=== PATIENT | female | born 1995 | race Caucasian/White ===

== ENCOUNTER 2020-09-14 02:50 | Emergency (ER) | payer BC, MEDICAID, SELFPAY ==
[2020-09-14 02:54] VITALS: PULSE 94; RESP 18; TEMP 36.4; O2SAT 98; BMI 32.8
--- NOTE | 2020-09-14 02:59 | W.ED.ABDPA2 ---
HPI - Abdominal Pain General: Chief Complaint: Abdominal Pain Stated Complaint: gallbladder issue Time Seen by Provider: 09/14/20 02:55 Source: patient Mode of arrival: ambulatory Limitations: no limitations History of Present Illness: HPI narrative: 25-year-old female states she been having right upper quadrant pain over the last day starting roughly 2 to 3 hours ago. States that sharp pain and rates an 8 out of 10. She states she has had this pain in the past has been told that she needs to have her gallbladder out. She denies any fever. She denies any nausea vomiting. She states she is currently as well. States her last period was July 12. Denies any worsening improving factors. MD elicited complaint: abdominal pain Associated Symptoms: Denies chills, dysuria and fever(s) Review of Systems Const: Denies: fever(s), chills, body aches or change in appetite Eyes: Denies: blurry vision or eye discomfort ENMT: Denies: throat pain or dental pain Card: Denies: chest pain Resp: Denies: dyspnea GI: Reports: abdominal pain : Denies: dysuria Musc: Denies: neck pain or back pain Skin/Breast: Denies: rash Neuro: Denies: headache(s) Psych: Denies: depression [place]/Lymph: Denies: easy bruising All/Imm: Denies: urticaria PFSH ED PFSH: Medical History (Updated 09/14/20 @ 04:22 by Janee Urban MD) No pertinent past medical history Patient denies any past medical history of hypertension, diabetes, heart, lung, liver, kidney, thyroid, bleeding, or clotting problems. PCP: None Surgical History Status post delivery x 2 ---01/25/2014--primary low transverse delivery with double layer closure of uterus with no extension performed at [facility] in [facility]. 11/03/2018--repeat low transverse delivery by Dr. Treadwell at [facility], minimal adhesions of bladder to uterus. Status post tonsillectomy and adenoidectomy At the age of 4 Family History Brother Colon cancer Arnel Jarrell her brother was diagnosed with colon cancer at the age of 21 and at the age of 23. She has never had a colonoscopy herself. 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[place], [place] Physical Exam Const: COMMON NORMALS: no acute distress, patient oriented x3 and healthy appearing HENMT: COMMON NORMALS: normocephalic and atraumatic HEAD & SCALP: normocephalic and atraumatic Eye: COMMON NORMALS: Equal, round and reactive pupils present and EOMs intact bilaterally PUPIL: Yes Equal, round and reactive pupils present Neck/C-Spine: COMMON NORMALS: full ROM and supple Chest: COMMONS NORMALS: normal inspection of the chest and normal palpation of entire chest wall Resp: COMMON NORMALS: normal respiratory effort, No retractions, No use of accessory muscles and clear to auscultation bilaterally AUSCULTATION: clear to auscultation bilaterally Cardio: COMMON NORMALS: regular rate, regular rhythm and No murmurs present (Cardio) RATE: regular rate RHYTHM: regular rhythm GI: COMMON NORMALS: Normal to inspection, nondistended, normoactive bowel sounds present, Soft to palpation and no masses PALPATION: Yes Soft to palpation and Yes Tenderness to palpation present (GI) Details: RUQ Extremity: COMMON NORMALS: normal to inspection and full ROM Neuro: COMMON NORMALS: patient oriented x3, moves all extremities and no focal motor deficits Psych: COMMON NORMALS: mental status grossly normal, Normal thought process present and cooperative THOUGHT PROCESS: Normal thought process present Skin: COMMON NORMALS: no rashes or lesions noted and no wounds GENERAL SKIN EXAM: no rashes or lesions noted Course Vital Signs: Vital signs: Vital Signs Temperature 97.5 F L 09/14/20 02:54 Pulse Rate 68 09/14/20 04:15 Respiratory Rate 16 09/14/20 04:15 Pulse Oximetry 98 09/14/20 04:15 MDM - Abdominal Pain MDM Narrative: Medical decision making narrative: Patient presents here with abdominal pain does have gallstones. No signs of cholecystitis. Patient is I did a bedside ultrasound showed a roughly 8 to 9 weeks with heart rate of 152. She is to follow-up with surgery and return if worsening. She understands agrees to plan. Lab Data: Labs: Lab Results 09/14/20 09/14/20 09/14/20 Range/Units 03:10 03:20 03:25 WBC 9.4 (4.0-10.0) 10^3/ uL RBC 4.28 (4.1-5.3) 10^6/u L Hgb 12.2 (11.5-15.3) g/dL Hct 37.7 (37.0-47.0) % MCV 88.1 (81-99) fL MCH 28.5 (28.0-34.0) pg MCHC 32.4 (30.0-36.0) g/dL RDW 12.5 (12.1-15.1) % Plt Count 360 (130-400) 10^3/c mm MPV 9.3 (7.4-10.4) fL Neut % (Auto) 60.4 % Lymph % (Auto) 28.8 % [place] % (Auto) 8.3 % Eos % (Auto) 1.8 % Baso % (Auto) 0.2 % Neut # (Auto) 5.65 (1.8-7.7) 10^3/u L Lymph # (Auto) 2.7 (0.8-4.8) 10^3/u L [place] # (Auto) 0.8 (0.2-0.9) 10^3/u L Eos # (Auto) 0.2 (0.0-0.8) 10^3/u L Baso # (Auto) 0.0 (0.0-0.1) 10^3/u L Nucleated RBC % (a uto) 0 % Nucleated RBCs # 0.0 /100WBC Sodium 135 L (136-145) mmol/L Potassium 3.6 (3.5-5.1) mmol/L Chloride 103 (98-107) mmol/L Carbon Dioxide 22 (22-29) mmol/L Anion Gap 13.6 (5-19) BUN 10 (6-20) mg/dL Creatinine 0.4 L (0.5-0.9) mg/dL GFR Calculation 191.5 H (90-130) mL/min Glucose 83 (65-115) mg/dL Calculated Osmolal ity 278 L (285-295) mOsm/k g Calcium 8.8 (8.5-10.5) mg/dL Total Bilirubin 0.2 (0.15-1.2) mg/dL AST 25 (0-32) U/L ALT 35 H (0-33) U/L Alkaline Phosphata se 104 (35-105) IU/L Total Protein 7.6 (6.6-8.7) g/dL Albumin 4.0 (3.5-5.2) g/dL Globulin 3.6 (1.3-4.6) g/dL Lipase 43 (13-60) U/L Urine Color Yellow (Yellow) Urine Appearance Clear (CLEAR) Urine pH 6 (5-7) Ur Specific Gravit y 1.025 (1.005-1.030) Urine Protein Neg (Negative) Urine Glucose (UA) Norm (Normal) Urine Ketones Negative (Negative) Urine Blood Neg (Negative) Urine Nitrate Negative (Negative) Urine Bilirubin Neg (Negative) Urine Urobilinogen Norm (Negative) mg/dL Ur Leukocyte Stella ase Negative (Negative) Imaging Data ^: US: Attestation: I personally reviewed and interpreted this imaging study as follows: My impression: gallstones with no cholecystitis Discharge Plan Discharge Patient Disposition: Home Clinical Impression: Abdominal pain Qualifiers: Abdominal location: right upper quadrant Qualified Code(s): R10.11 - Right upper quadrant pain Gallstone Qualifiers: Cholecystitis presence: without cholecystitis Biliary obstruction: without biliary obstruction Qualified Code(s): K80.20 - Calculus of gallbladder without cholecystitis without obstruction Qualifiers: Weeks of gestation: unspecified Qualified Code(s): Z34.90 - Encounter for supervision of normal , unspecified, unspecified trimester Condition: Stable Prescriptions: [place] 5-325 mg tablet 1 tab PO Q6H PRN (Reason: pain) Qty: 14 RF: 0 ondansetron 4 mg tablet,disintegrating 4 mg PO Q6H PRN (Reason: nausea and vomiting) Qty: 14 RF: 0 Discharge Orders: Discharge ED (Routine); Ordered 09/14/20 Ordered By: Janee Urban Referrals: Aaron Smith MD [Physician] - 1-3 days Orion Epps MD [Primary Care Provider] - Discharge Diet: Advance as tolerated Discharge Activity: Resume usual activity Patient Instructions: Biliary Colic (ED), Abdominal Pain (ED), Opioid Safety Coding Level of Care Code ED Airdrop Systems Technician for Chg Fwd Exam Comprehensive
[2020-09-14] MEDS: ondansetron 2 mg/ML SDV 2 mL 4 MG IVP (03:20)
[2020-09-14 03:21] VITALS: RESP 16; O2SAT 100
[2020-09-14] MEDS: morphine 4 mg/mL SDV 1 mL IVP (03:21)
[2020-09-14 03:27] LABS: Add Urine Microscopic? NO
--- NOTE | 2020-09-14 03:30 | USR_ITS ---
PROCEDURE INFORMATION: Exam: US Abdomen, Limited; Right Upper Quadrant Exam date and time: 09/14/2020 3:30 AM Age: 25 years old Clinical indication: Abdominal pain; Acute; Additional info: Abd pain TECHNIQUE: Imaging protocol: US abdomen. Real time ultrasound with image documentation. Limited exam focused on the right upper quadrant. COMPARISON: US gall bladder [id number] 04/05/2019 7:19 PM FINDINGS: Liver: Unremarkable liver, no focal abnormality. Gallbladder: Moderate amount of echogenic material within the gallbladder. There appears to be some acoustic shadowing, so some of this represents gallstones. I suspect some of the findings represent biliary sludge. No definite/significant gallbladder wall thickening. No definite pericholecystic fluid. The gallbladder is upper range of normal in size, transverse diameter up to 3.8 cm. Technologist states patient was tender over the gallbladder region during scanning. Common bile duct: No biliary dilation, common duct measures 2.6 mm. Pancreas: Visible pancreas unremarkable. Right kidney: Images of the right kidney show no hydronephrosis. US/US gall bladder [id number] IMPRESSION: 1. Cholelithiasis, see additional details above. 2. No biliary tree dilation. 3. Other findings discussed above.
[2020-09-14 03:38] LABS: Basophils % 0.2 %; Eosinophils # 0.2 10^3/uL (0.0-0.8); Eosinophils % 1.8 %; Hematocrit 37.7 % (37.0-47.0); Hemoglobin 12.2 g/dL (11.5-15.3); Lymphocytes # 2.7 10^3/uL (0.8-4.8); Lymphocytes % 28.8 %; Mean Corpuscular HGB Conc 32.4 g/dL (30.0-36.0); Mean Corpuscular Hemoglobin 28.5 pg (28.0-34.0); Mean Corpuscular Volume 88.1 fL (81-99); Mean Platelet Volume 9.3 fL (7.4-10.4); Monocytes # 0.8 10^3/uL (0.2-0.9); Monocytes % 8.3 %; Neutrophils # 5.65 10^3/uL (1.8-7.7); Neutrophils % 60.4 %; Nucleated Red Blood Cells % 0 %; Platelet Count 360 10^3/cmm (130-400); Red Blood Count 4.28 10^6/uL (4.1-5.3); Red Cell Distribution Width 12.5 % (12.1-15.1); White Blood Count 9.4 10^3/uL (4.0-10.0)
[2020-09-14 03:40] LABS: Alanine Aminotransferase 35 U/L (0-33); Alkaline Phosphatase 104 IU/L (35-105); Aspartate Amino Transferase 25 U/L (0-32); Blood Urea Nitrogen 10 mg/dL (6-20); Calcium 8.8 mg/dL (8.5-10.5); Carbon Dioxide 22 mmol/L (22-29); Chloride 103 mmol/L (98-107); Globulin 3.6 g/dL (1.3-4.6); Glomerular Filtration Rate 191.5 mL/min (90-130); Glucose 83 mg/dL (65-115); Lipase 43 U/L (13-60); Osmolality Calculated 278 mOsm/kg (285-295); Sodium 135 mmol/L (136-145); Total Bilirubin 0.2 mg/dL (0.15-1.2); Total Protein 7.6 g/dL (6.6-8.7)
[2020-09-14 03:42] LABS: Anion Gap 13.6 (5-19); Potassium 3.6 mmol/L (3.5-5.1)
[2020-09-14 03:47] LABS: Bilirubin Urine Neg (Negative); Blood Urine Neg (Negative); Glucose Urine UA Norm (Normal); Ketones Urine Negative (Negative); Leukocyte Esterase Urine Negative (Negative); Nitrate Urine Negative (Negative); Protein Urine Neg (Negative); Specific Gravity, Urine 1.025 (1.005-1.030); Urine Appearance Clear (CLEAR); Urine Color Yellow (Yellow); Urobilinogen Urine Norm (Negative); pH Urine 6 (5-7)
[2020-09-14 04:15] VITALS: PULSE 68; RESP 16; O2SAT 98
[2020-09-14] MEDS: HYDROcodone-acetaminophen 7.5-325 mg Tablet 1 TAB PO (04:28)
[2020-09-14 04:31] VITALS: BP 106/90; PULSE 98; RESP 18; O2SAT 97
--- NOTE | 2020-09-16 14:14 | DCPLANNER ---
store sales manager had message to schedule a follow up appointment for patient with Dr. Smith. store sales manager faxed patients information to the office of Dr. Smith, will call for appointment information.
--- NOTE | 2020-10-22 14:06 | DCPLANNER ---
embedded case manager called the office of Dr. Smith, spoke with Mackenzie, to confirm if a follow up appointment had been scheduled for patient. embedded case manager was told that when clinic called and spoke with patient, that patient stated that when she wanted an appointment that she would call the clinic to schedule a follow up.
== END 2020-09-14 04:33 | disposition home or self-care (01) ==
PROVIDERS: Emergency Provider Emergency Medicine; PCP Family Medicine
DX: O99.611 Diseases of the digestive system complicating pregnancy, first trimester (principal); Z3A.08 8 weeks gestation of pregnancy
CPT/HCPCS: 76705; 80053; 81003; 83690; 85025; 96374; 96375; 99283; J2270; J2405

== ENCOUNTER 2020-09-25 15:11 | Outpatient (CLI) | payer MEDICAID, SELFPAY ==
[2020-09-25 16:08] LABS: Amphetamines Screen Urine Negative (Negative); Barbiturates Screen Urine Negative (Negative); Benzodiazepines Screen Urine Negative (Negative); Cocaine Screen Urine Negative (Negative); Opiate Screen Urine Negative (Negative); PCP Screen Urine Negative (Negative); THC Screen Urine Negative (Negative)
[2020-09-25 21:40] LABS: Rapid Plasma Reagin Syphilis Nonreactive (Nonreactive)
[2020-09-25 22:00] LABS: Hepatitis B Surface Antigen Non-Reactive (Nonreactive); Hepatitis C Virus Antibody Non-Reactive (Nonreactive)
== END 2020-09-25 15:12 | disposition home or self-care (01) ==
LOC: LAB 15:28
PROVIDERS: PCP Family Medicine; Visit Provider Obstetrics & Gynecology
DX: Z34.90 Encounter for supervision of normal pregnancy, unspecified, unspecified trimester (principal)
CPT/HCPCS: 36415; 80306; 80307; 84315; 86592; 86762; 86803; 86850; 86900; 87340; 87491; 87591

== ENCOUNTER → 2020-10-03 11:00 | Outpatient (BNVA) | payer MEDICAID, SELFPAY | PROVIDERS: PCP Family Medicine; Visit Provider Surgery | DX: K80.20 Calculus of gallbladder without cholecystitis without obstruction (principal) | CPT/HCPCS: 87635 ==

== ENCOUNTER → 2020-10-07 08:29 | Outpatient (BNVA) | payer MEDICAID, SELFPAY | PROVIDERS: PCP Family Medicine; Visit Provider Obstetrics & Gynecology | DX: Z34.90 Encounter for supervision of normal pregnancy, unspecified, unspecified trimester (principal); Z3A.00 Weeks of gestation of pregnancy not specified | CPT/HCPCS: 87086 ==

== ENCOUNTER 2020-10-08 09:36 | Day surgery (SDC) | payer MEDICAID, SELFPAY ==
[2020-10-07 08:53] VITALS: BMI 37.9
[2020-10-07] MEDS: ondansetron 2 mg/ML SDV 2 mL 4 MG IVP (12:30)
[2020-10-08] VITALS (11 sets, daily range): BP systolic 82–111; BP diastolic 49–77; PULSE 54–83; RESP 12–20; TEMP 36.3–36.6; O2SAT 95–100
--- NOTE | 2020-10-08 10:24 | PC.NURSE ---
OB NURSE, SHERRI PAYTON RN HERE AND CHECKING HEART TONES.
--- NOTE | 2020-10-08 10:28 | W.PM.OPSUD ---
Surgery/Procedure H&P Update DATE OF PROCEDURE: October 08, 2020 DATE H&P PERFORMED: 10/03/20 H&P UPDATE INFORMATION: I have reviewed H&P completed within last 30 days, I have examined patient prior to procedure and No changes to prior documentation PREOP DIAGNOSIS: Symptomatic cholelithiasis PRIMARY INDICATION FOR PROCEDURE: The same PLANNED PROCEDURE: Operation Date: 10/08/20 11:10 Proposed Procedures p Laparoscopic Cholecystectomy 85225 K80.20(Not Applicable) - Genaro Ford MD
[2020-10-08] MEDS: sodium chloride 0.9% 1,000 ML 30 ML IV (10:32)
--- NOTE | 2020-10-08 10:32 | PC.NURSE ---
1025 HEART TONES DOPPLERED AT 150'S
--- NOTE | 2020-10-08 10:41 | P.ANESASSM_ITS ---
Pre-Anesthetic Assessment Pre-Anesthetic Assessment: Height/Weight: Height 1.6 m Weight 97.069 kg Temp Pulse Resp BP Pulse Ox 97.3 F L 83 18 111/77 100 10/08/20 10:19 10/08/20 10:19 10/08/20 10:19 10/08/20 10:19 10/08/20 10:19 Preop Diagnosis: Symptomatic cholelithiasis Proposed Procedure: Operation Date: 10/08/20 11:10 Proposed Procedures p Laparoscopic Cholecystectomy 24950 K80.20(Not Applicable) - Genaro Ford MD Was Beta Joe taken within 24 hours: N/A Was Clonidine taken within 24 hours: N/A Last intake: Intake Last Liquid Date 10/07/20 Last Liquid Time 20:00 Last Solid Date 10/07/20 Last Solid Time 20:00 Social: Social History: No alcohol and No tobacco Exam: Pre-Anes Outpt Exam: alert, oriented x 3, clear to auscultation bilaterally and regular rate & rhythm Airway: Submandibular: WNL Cervical ROM: WNL MP: 2 History/ROS: No significant history except as noted Pulmonary: Pulmonary: None reported CV/HEM: CV/HEM: None reported : : None reported Hepatic: Hepatic: None reported GI: Comments: Symptomatic cholelithiasis Metabolic: Metabolic: None reported Musc/skel: Musc/skel: None reported Neuropsych: Neuropsych: None reported Anesthetic Plan: ASA status: 2 Anesthesia: General Meds/Allergies Current Medications: Current Medications Generic Name Dose Route Start Last Admin Trade Name Freq PRN Reason Stop Dose Admin Sodium Chloride 1,000 mls @ 30 ml s/hr 10/08/20 10:30 10/08/20 10:32 Sodium Chloride 0.9% IV 10/09/20 10:29 30 mls/hr .Q24H TYRESE Administration PFSH Anesthesia PFSH: Medical History No pertinent past medical history Patient denies any past medical history of hypertension, diabetes, heart, lung, liver, kidney, thyroid, bleeding, or clotting problems. PCP: None Surgical History Status post delivery x 2 ---01/25/2014--primary low transverse delivery with double layer closure of uterus with no extension performed at [facility] in [facility]. 11/03/2018--repeat low transverse delivery by Dr. Treadwell at [facility], minimal adhesions of bladder to uterus. Status post tonsillectomy and adenoidectomy At the age of 4 Family History Brother Colon cancer Arnel Jarrell her brother was diagnosed with colon cancer at the age of 21 and at the age of 23. She has never had a colonoscopy herself. Family/Other Breast cancer maternal aunt, diagnosed in er 50s Denies family history of Ovarian cancer Diabetes Heart disease Hyperlipidemia Hypertension Uterine cancer Thyroid condition Stroke Social History Smoking and tobacco status: never smoked Alcohol intake: unknown Data Anesthesia Cardiac Studies: No Data to Display
[2020-10-08] MEDS: ampicillin-sulbactam 3 GM in sodium chloride 0.9% (plus) 50 ML IV (10:45)
[2020-10-08] MEDS: lidocaine 2% INJ 20 mL INJECTION (11:11)
--- NOTE | 2020-10-08 11:42 | P.OP_ITS ---
Operative Report Date of procedure: October 08, 2020 Pre-op Diagnosis: Symptomatic cholelithiasis Post-op diagnosis: other (Chronic calculus cholecystitis) Post-op Findings: Mild hepatomegaly due to fatty liver Procedure Done: Laparoscopic cholecystectomy Specimens removed/disposition: Gallbladder and contents Surgeon: Genaro Ford Executive Director Contract Shop: Surgical adeel Romero Circulating nurse Milly Ochoa Anesthesia: General (GET[employer] claims adjuster Gage) Estimated blood loss (mL): 5 IV fluids (mL): 500 Complications: No immediate complications Condition: stable Disposition: same day Brief History: This is a pleasant 25 years old female patient second trimester of gestation, presented to my practice with symptomatic cholelithiasis. Full H&P and informed consent per chart. Note viable heart sounds in the holding area preoperatively and postoperatively examined by obstetric nurse. Procedure: Patient was identified in the holding area and taken back to the operative suite, placed in supine position intubated by anesthesia . Time-out was done verifying the patient's name/date of /planned procedure and destination after the procedure, all were in agreement. SCDs confirmed to be functioning, preoperative antibiotics administered per protocol, and beta pati protocol was confirmed. Patient was appropriately secured to the table, footboard was applied to the OR table, before prep and drape anesthesia was asked to tilt the table back and forth to make sure that the patient is appropriately secured and she was. Prep and drape of the abdomen was done under the usual sterile technique, follow ed by that supraumbilical skin incision,skin incision was done by a 15 blade knife, and stay sutures were applied to the fascia and Sloan trocar technique was used to enter the abdominal without injuring any abdominal viscera, started by low flow gas insufflation followed by a high flow pressure maintained to be at 12 mmHg, started with a 10 mm laparoscope and under direct vision there was no evidence of any injuries, the scope then switched to a 30? ,10 millimeter scope and under direct visualization 5 millimeter trocar was inserted in the epigastric region followed by two 5 mm trocars were inserted in the right upper quadrant that was done after injection of local lidocaine 2% at all incision sites. Gallbladder showed chronic calculus cholecystitis with mild hepatomegaly Patient was then positioned in the head up and tilted to the left Ratcheted forceps were introduced into the lateral most 5mm port and was applied unto the fundus of the gallbladder cephalad and using Bullet forceps the infundibulum of the gallbladder was retracted laterally. Using [place] forceps then L-hook cautery to dissect the peritoneum overlying the Calot's triangle whihc was then opened medially and laterally until the cystic duct and the cystic artery were skeletonized. Dissection was carried along the body of the gallbladder and after ensuring critical view of safety was identfied. Cystic duct and cystic artery where seen connected to the gallbladder. Clips were applied on the cystic duct towards the common bile duct 1 towards the gallbladder then divided is in sharp scissors, 2 clips were then applied onto the cystic artery and 1 towards the gallbladder and divided by sharp scissors. Dissection was then carried along of the gallbladder from the gallbladder fossa using cautery as well as sharp dissection with heat energy. The gallbladder then was dissected out from the gallbladder fossa totally , cholecystectomy was then achieved and was placed in an Endo Catch bag and then retrieved from the Sloan trocar site under direct visualization using a 5 mm 30? scope through the epigastric trocar, specimen was then passed to the circulating nurse to go for permanent pathology and hemostasis was done to the gallbladder fossa after hemostasis was secured, final survey laparoscopy was done that showed no injuries. Noticed to have gravid uterus with visible pulsation.Per in utero fetus. The supraumbilical fascial defect was then closed using [id number] #1 PDS sutures using a fascial closure device ;Shoaib Phan under direct visualization Gas was allowed to deflate,Trocars were then taken out under direct vision there was no evidence of bleeding Specimen was passed to the circulating nurse for permanent pathology. No drains were placed and the supraumbilical incision as well as all trocar sites were closed by 3-0 Vicryl followed by 4-0 Monocryl to approximate the skin edges of the supraumbilical incision, dressing was applied in the form of Dermabond and the patient patient got extubated and was taken to recovery area in a stable condition. Count of sponges,needles and instruments were completed at the end of the procedure I was present for the whole entire procedure.
--- NOTE | 2020-10-08 11:55 | PC.NURSE ---
priti olsen from OB came to OR 4 after case was completed. She used the ultrasound to view fetus after unable to hear heart tones with doppler. Dr Ford was present as well and witnessed visual of heart beating.
[2020-10-08] MEDS: ondansetron 2 mg/ML SDV 2 mL 4 MG IVP (12:03)
--- NOTE | 2020-10-08 12:52 | PC.NURSE ---
THIS RADIOLOGICAL METALLURGIST WENT TO OR TO OBTAIN FHTS, UNABLE TO GET THEM WITH DOPPLER SO PORTABLE ULTRASOUND USED TO VISUALIZE HEART BEATING, WITNESSED BY DR. Merritt AND SEVERAL NURSES IN OR.
--- NOTE | 2020-10-08 12:58 | PC.NURSE ---
1252-ephedrine given IVP by FINANCIAL INSTITUTION BRANCH MANAGER for BP.
--- NOTE | 2020-10-08 13:50 | PC.NURSE ---
IV BOLUS OF NS 500ML INFUSED. PT SMILING, TALKING, AND VS BACK TO BASELINE. PT TAKING FLUIDS AND EATING CRACKERS WITHOUT NAUSEA. SKIN COLOR PINK.
--- NOTE | 2020-10-08 13:53 | ANE.PACU2 ---
Inpatient post-anesthesia follow up: Airway intact: Yes Vital signs: Temperature 97.8 F Pulse Rate 82 Respiratory Rate 18 Blood Pressure 104/55 Pulse Oximetry 100 Oxygen Delivery Me thod Room Air Oxygen Flow Rate 10 Fraction of Inspir ed Oxygen Hydration adequate: Yes Nausea and vomiting: No Pain level: 3 Mental status: Baseline
== END 2020-10-08 14:19 | disposition home or self-care (01) ==
PROVIDERS: Visit Provider Surgery
PROC: 0FT44ZZ Resection of Gallbladder, Percutaneous Endoscopic Approach (ICD-10-PCS; CPT 47562; principal; 2020-10-08 11:00)
DX: K80.10 Calculus of gallbladder with chronic cholecystitis without obstruction (principal); Z80.0 Family history of malignant neoplasm of digestive organs; Z80.3 Family history of malignant neoplasm of breast
CPT/HCPCS: 47562; 88304; 96365; 96374; J0295; J1100; J2405; J2704; J3010; J3490; J7030

== ENCOUNTER → 2020-10-24 13:03 | Outpatient (BNVA) | payer MEDICAID, SELFPAY | PROVIDERS: Visit Provider Nurse Practitioner Women's Health | DX: Z34.90 Encounter for supervision of normal pregnancy, unspecified, unspecified trimester (principal) | CPT/HCPCS: 82950; 84315 ==

== ENCOUNTER 2021-01-19 18:10 | Outpatient (CLI) | payer MEDICAID, SELFPAY ==
[2021-01-19] VITALS (14 sets, daily range): BP systolic 78–107; BP diastolic 51–70; PULSE 91–109; RESP 16–20; TEMP 37.1–37.2; O2SAT 99; BMI 36.8
[2021-01-19 19:20] LABS: Bilirubin Urine 1+ (Negative); Blood Urine Neg (Negative); Glucose Urine UA Norm (Normal); Ketones Urine 3+ (Negative); Leukocyte Esterase Urine Trace (Negative); Nitrate Urine Negative (Negative); Protein Urine Neg (Negative); Specific Gravity, Urine 1.015 (1.005-1.030); Urine Appearance SL Hazy (CLEAR); Urine Color Yellow (Yellow); Urobilinogen Urine 4 mg/dL (Negative); pH Urine 5 (5-7)
[2021-01-19 19:24] LABS: Mucus Urine 1+ /hpf
[2021-01-19 19:25] LABS: Add Urine Culture? No; Bacteria Urine 1+ /hpf
[2021-01-19 19:35] LABS: SARS Covid-2 Antigen Positive (Negative)
[2021-01-19] MEDS: guaiFENesin-codeine UDC 10 mL PO (19:56)
[2021-01-19] MEDS: ondansetron 2 mg/ML SDV 2 mL 4 MG IVP (19:56)
== END 2021-01-19 21:09 | disposition home or self-care (01) ==
LOC: OPOB 18:14 → OBGYN 18:15
PROVIDERS: Visit Provider Obstetrics & Gynecology
DX: O26.899 Other specified pregnancy related conditions, unspecified trimester (principal); Z3A.00 Weeks of gestation of pregnancy not specified; R10.9 Unspecified abdominal pain; R05 Cough
CPT/HCPCS: 59025; 81001; 87426; 96374; 99211; J2405

== ENCOUNTER 2021-01-21 16:35 | Emergency (ER) | payer MEDICAID, SELFPAY ==
[2021-01-21 17:19] VITALS: BP 88/63; PULSE 116; RESP 26; TEMP 37.5; O2SAT 97; BMI 36.8
--- NOTE | 2021-01-21 18:16 | XRR_ITS ---
PROCEDURE INFORMATION: Exam: XR Chest Exam date and time: 01/21/2021 6:16 PM Age: 25 years old Clinical indication: Shortness of breath; Additional info: Cough, SOB, covid +, lower abd pain/discomfort, weakness. 29 weeks TECHNIQUE: Imaging protocol: XR of the chest. Views: 1 view. COMPARISON: ES surgery / GI images 10/08/2020 8:30 AM FINDINGS: Lungs: Patchy symmetric right lower lung infrahilar airspace opacity in the lower lobes. Mild decreased lung volumes. Interstitium is unremarkable. No vascular dilation. Pleural spaces: Unremarkable. No pleural effusion. No pneumothorax. Heart/Mediastinum: Normal cardiac silhouette. Bones/joints: Unremarkable. XR/XR chest 1V portable [id number] IMPRESSION: Patchy right lower lobe pneumonia suspected.
[2021-01-21 20:41] VITALS: BP 110/78; PULSE 107; RESP 22; O2SAT 100
[2021-01-21] MEDS: acetaminophen 325 mg Tablet 650 MG PO (21:11)
[2021-01-21] MEDS: sodium chloride 0.9% 1,000 ML 999 ML IV ×2 (21:36→23:41)
[2021-01-21] MEDS: ondansetron 2 mg/ML SDV 2 mL 4 MG IVP (21:36)
[2021-01-21 21:46] VITALS: BP 112/80; PULSE 102; RESP 22; O2SAT 100
[2021-01-21 21:49] LABS: Basophils % 0.5 %; Hematocrit 38.4 % (37.0-47.0); Hemoglobin 12.4 g/dL (11.5-15.3); Lymphocytes # 1.2 10^3/uL (0.8-4.8); Lymphocytes % 18.7 %; Mean Corpuscular HGB Conc 32.3 g/dL (30.0-36.0); Mean Corpuscular Hemoglobin 28.4 pg (28.0-34.0); Mean Corpuscular Volume 88.1 fL (81-99); Monocytes # 0.4 10^3/uL (0.2-0.9); Monocytes % 5.8 %; Neutrophils # 4.73 10^3/uL (1.8-7.7); Neutrophils % 71.7 %; Nucleated Red Blood Cells % 0 %; Platelet Count 231 10^3/cmm (130-400); Red Blood Count 4.36 10^6/uL (4.1-5.3); Red Cell Distribution Width 14.1 % (12.1-15.1); White Blood Count 6.6 10^3/uL (4.0-10.0)
[2021-01-21 22:05] LABS: Alanine Aminotransferase 37 U/L (0-33); Albumin Level 3.7 g/dL (3.5-5.2); Alkaline Phosphatase 204 IU/L (35-105); Anion Gap 24.6 (5-19); Aspartate Amino Transferase 36 U/L (0-32); Blood Urea Nitrogen 3 mg/dL (6-20); Calcium 7.9 mg/dL (8.5-10.5); Carbon Dioxide 12 mmol/L (22-29); Chloride 100 mmol/L (98-107); Creatine Phosphokinase 38 U/L (26-192); Glucose 73 mg/dL (65-115); Osmolality Calculated 271 mOsm/kg (285-295); Potassium 3.6 mmol/L (3.5-5.1); Sodium 133 mmol/L (136-145); Total Bilirubin 0.9 mg/dL (0.15-1.2); Total Protein 6.7 g/dL (6.6-8.7)
[2021-01-21 22:19] LABS: Add Urine Culture? No; Add Urine Microscopic? YES; Amorphous Sediment Urine 1+ /hpf; Bacteria Urine 1+ /hpf; Bilirubin Urine 1+ (Negative); Blood Urine Neg (Negative); Glucose Urine UA Norm (Normal); Hyaline Casts Urine 0-4 /lpf; Ketones Urine 3+ (Negative); Leukocyte Esterase Urine 2+ (Negative); Mucus Urine 1+ /hpf; Nitrate Urine Negative (Negative); Protein Urine Neg (Negative); RBC Urine 0-4 /hpf (0-2); Specific Gravity, Urine 1.025 (1.005-1.030); Urine Appearance SL Hazy (CLEAR); Urine Color Yellow (Yellow); Urobilinogen Urine 4+ mg/dL (Negative); pH Urine 5 (5-7)
[2021-01-21 22:25] LABS: Lactate (Lactic Acid level) 0.6 mmol/L (0.5-2.2)
--- NOTE | 2021-01-21 22:33 | ED_ITS ---
HPI - COVID General: Chief Complaint: COVID symptoms Stated Complaint: covid +, sob, weak, Time Seen by Provider: 01/21/21 20:27 Triage information: Has fever, cough or shortness of breath . No known COVID + exposure last 14 days History of Present Illness: HPI Narrative: The patient is a 25-year-old female at 29 weeks gestational age who comes to the ER known Covid positive complaining of body aches and decreased appetite. She says she was diagnosed a couple days ago at the OBs office and has had symptoms for approximately 5 days. She says she is fatigued and weak and has lower back pain that aches her. She has not been eating and drinking well the past couple days. She denies contractions and does appreciate movement. Also denies vaginal discharge or blood. MD complaint: known COVID positive and has COVID symptoms Prior covid testing: yes, results known COVID 19 common symptoms: positive chills, non-productive cough, dyspnea, fatigue, body aches, headache(s), loss of sense of smell and/or taste, nausea and vomiting; negative throat pain or nasal congestion COVID 19 other sytmptoms: negative chest pain, requiring oxygen, respiratory distress or cyanosis Onset (ago): day(s) (5) Severity: mild Treatment prior to arrival: cold medicine COVID Results: SARS-CoV-2 Antigen (Rapid) Positive (Negative) H 01/19/21 18:35 01/19/21 Nasal/Oral Coronavirus 2019 PCR Not detected 10/03/20 11:00 10/03/20 Review of Systems General: Reports: 10 or more systems reviewed and unremarkable except in HPI and below Const: Reports: chills, body aches and fatigue Eyes: Denies: change in vision, blurry vision or eye redness ENMT: Denies: throat pain, swelling of lips/tongue, ear or mastoid pain or nasal congestion Card: Denies: chest pain, palpitations, irregular heart rhythm, edema, dyspnea on exertion or orthopnea Resp: Reports: dyspnea and non-productive cough GI: Reports: nausea and vomiting : Denies: flank pain, difficulty voiding, urinary frequency or urinary urgency Musc: Denies: neck pain, back pain, extremity pain, joint pain, joint redness, limited range of motion or muscle weakness Skin/Breast: Denies: rash, pruritus, erythema, skin pain or skin tenderness Neuro: Reports: headache(s) Psych: Denies: anxiety or depression Endo: Denies: polyuria All/Imm: Denies: urticaria, throat swelling or tongue swelling PFSH ED PFSH: Medical History Family history of colon cancer No pertinent past medical history Patient denies any past medical history of hypertension, diabetes, heart, l michael, liver, kidney, thyroid, bleeding, or clotting problems. PCP: None Surgical History History of cholecystectomy 10/08/2020--laparoscopic procedure at [address] Gonzalez at [facility] for gallstones Status post delivery x 2 ---01/25/2014--primary low transverse delivery with double layer closure of uterus with no extension performed at [facility] in [facility]. 11/03/2018--repeat low transverse delivery by Dr. Treadwell at [facility], minimal adhesions of bladder to uterus. Status post tonsillectomy and adenoidectomy At the age of 4 Family History Brother Colon cancer Arnel Jarrell her brother was diagnosed with colon cancer at the age of 21 and at the age of 23. She has never had a colonoscopy herself. Family/Other Breast cancer maternal aunt, diagnosed in er 50s Denies family history of Ovarian cancer Diabetes Heart disease Hyperlipidemia Hypertension Uterine cancer Thyroid condition Stroke Social History Smoking and tobacco status: never smoked Alcohol intake: unknown Female Reproductive History: Date of last menstrual period: 07/01/20 Physical Exam Const: COMMON NORMALS: no acute distress, average body habitus, patient orie nted x3, no limitations, healthy appearing, alert and well nourished GENERAL APPEARANCE: cooperative, comfortable, well kempt and well developed ORIENTATION/CONSCIOUSNESS: Yes awake, Yes oriented to person, Yes oriented to place and Yes oriented to time HENMT: COMMON NORMALS: normocephalic, external ears normal and Normal external nose present HEAD & SCALP: normal to inspection and normocephalic NOSE: Normal external nose present EXTERNAL EAR: Yes external ears normal MOUTH: Normal oral and palatal mucosa present THROAT: posterior oropharynx normal Eye: COMMON NORMALS: Equal, round and reactive pupils present and EOMs intact bilaterally GENERAL EYE: appearance normal, both eyes and all related structures PUPIL: Yes Equal, round and reactive pupils present Neck/C-Spine: COMMON NORMALS: full ROM, no lymphadenopathy, no meningeal signs and no JVD GENERAL: Yes normal visual inspection Lymph: LYMPHATIC: no lymphadenopathy noted Chest: COMMONS NORMALS: normal inspection of the chest and normal palpation of entire chest wall Resp: COMMON NORMALS: normal respiratory effort, No retractions, No use of accessory muscles, clear to auscultation bilaterally and percussion normal EFFORT & INSPECTION: Yes able to speak in complete sentences AUSCULTATION: clear to auscultation bilaterally PERCUSSION: percussion normal Cardio: COMMON NORMALS: no JVD, regular rate, regular rhythm, S1 normal heart sound present, S2 normal heart sound present and Peripheral pulses 2+ throughout RATE: regular rate RHYTHM: regular rhythm HEART SOUNDS: S1 normal heart sound present and S2 normal heart sound present PERIPHERAL PULSES: Peripheral pulses 2+ throughout GI: COMMON NORMALS: Soft to palpation, non-tender and no masses INSPECTION: Yes normal to inspection PALPATION: Yes Soft to palpation OTHER: Appropriate for gestational age uterus above umbilicus. : COMMON NORMALS: Yes no CVA tenderness BLADDER/KIDNEY EXAM: Yes no CVA tenderness Back/Pelvis: COMMON NORMALS: no CVA tenderness, thoracic and lumbar spine normal to inspection, no thoracic nor lumbar tenderness and thoraco-lumbar ROM normal Extremity: COMMON NORMALS: normal to inspection, full ROM, capillary refill normal, no joint enlargement and no pedal edema GENERAL: Yes normal exam except as noted Neuro: COMMON NORMALS: patient oriented x3, CN's II-XII intact bilaterally, moves all extremities, no focal motor deficits, no sensory deficits noted and gait normal SENSORIUM/ORIENTATION: Yes alert, Yes oriented to person, Yes oriented to place and Yes oriented to time MENINGEAL SIGNS: Yes no meningeal signs Psych: COMMON NORMALS: mental status grossly normal, Normal thought process present, cooperative, normal affect and speech normal APPEARANCE: Yes well kempt ATTITUDE: Yes calm SPEECH: Yes normal speech THOUGHT PROCESS: Normal thought process present Skin: COMMON NORMALS: no rashes or lesions noted GENERAL SKIN EXAM: no rashes or lesions noted Course Vital Signs: Vital signs: Vital Signs Temperature 99.5 F 01/21/21 17:19 Pulse Rate 103 H 01/21/21 22:51 Respiratory Rate 20 H 01/21/21 22:51 Blood Pressure 97/51 01/21/21 23:04 Pulse Oximetry 99 01/21/21 22:51 MDM - COVID MDM Narrative: Medical decision making narrative: Patient comes to the ER significantly dehydrated suffering from COVID-19 for around 5 days or so. She was given over a liter of IV fluids, Tylenol, Zofran with moderate improvement of her symptoms. Also discussed with Dr. Cole who agrees with giving an antibiotic and steroid for her symptoms. She will be discharged with Zofran, Medrol Dosepak, Keflex and return with the ER with worsening symptoms. Follow- up with OB in a couple days. Drink lots of fluids. Lab Data: Labs: Lab Results 01/21/21 01/21/21 01/21/21 Range/Units 21:30 21:30 21:34 WBC 6.6 (4.0-10.0) 10^3/ uL RBC 4.36 (4.1-5.3) 10^6/u L Hgb 12.4 (11.5-15.3) g/dL Hct 38.4 (37.0-47.0) % MCV 88.1 (81-99) fL MCH 28.4 (28.0-34.0) pg MCHC 32.3 (30.0-36.0) g/dL RDW 14.1 (12.1-15.1) % Plt Count 231 (130-400) 10^3/c mm MPV 10.0 (7.4-10.4) fL Neut % (Auto) 71.7 % Lymph % (Auto) 18.7 % [place] % (Auto) 5.8 % Eos % (Auto) 0.0 % Baso % (Auto) 0.5 % Neut # (Auto) 4.73 (1.8-7.7) 10^3/u L Lymph # (Auto) 1.2 (0.8-4.8) 10^3/u L [place] # (Auto) 0.4 (0.2-0.9) 10^3/u L Eos # (Auto) 0.0 (0.0-0.8) 10^3/u L Baso # (Auto) 0.0 (0.0-0.1) 10^3/u L Nucleated RBC % (a uto) 0 % Nucleated RBCs # 0.0 /100WBC Sodium 133 L (136-145) mmol/L Potassium 3.6 (3.5-5.1) mmol/L Chloride 100 (98-107) mmol/L Carbon Dioxide 12 L (22-29) mmol/L Anion Gap 24.6 H (5-19) BUN 3 L (6-20) mg/dL Creatinine 0.5 (0.5-0.9) mg/dL GFR Calculation 148.0 H (90-130) mL/min Glucose 73 (65-115) mg/dL Calculated Osmolal ity 271 L (285-295) mOsm/k g Lactate (0.5-2.2) mmol/L Calcium 7.9 L (8.5-10.5) mg/dL Total Bilirubin 0.9 (0.15-1.2) mg/dL AST 36 H (0-32) U/L ALT 37 H (0-33) U/L Alkaline Phosphata se 204 H (35-105) IU/L Creatine Kinase 38 (26-192) U/L Total Protein 6.7 (6.6-8.7) g/dL Albumin 3.7 (3.5-5.2) g/dL Globulin 3.0 (1.3-4.6) g/dL Urine Color Yellow (Yellow) Urine Appearance Sl hazy (CLEAR) Urine pH 5 (5-7) Ur Specific Gravit y 1.025 (1.005-1.030) Urine Protein Neg (Negative) Urine Glucose (UA) Norm (Normal) Urine Ketones 3+ H (Negative) Urine Blood Neg (Negative) Urine Nitrate Negative (Negative) Urine Bilirubin 1+ H (Negative) Urine Urobilinogen 4+ H (Negative) mg/dL Ur Leukocyte Stella ase 2+ H (Negative) Urine RBC 0-4 H (0-2) /hpf Urine WBC 10-15 H (0-5) /hpf Ur Squamous Epith Cells 10-15 H (0-5) /hpf Amorphous Sediment 1+ /hpf Urine Bacteria 1+ H (NONE) /hpf Hyaline Casts 0-4 H /lpf Urine Mucus 1+ /hpf 01/21/21 Range/Units 21:45 WBC (4.0-10.0) 10^3/ uL RBC (4.1-5.3) 10^6/u L Hgb (11.5-15.3) g/dL Hct (37.0-47.0) % MCV (81-99) fL MCH (28.0-34.0) pg MCHC (30.0-36.0) g/dL RDW (12.1-15.1) % Plt Count (130-400) 10^3/c mm MPV (7.4-10.4) fL Neut % (Auto) % Lymph % (Auto) % [place] % (Auto) % Eos % (Auto) % Baso % (Auto) % Neut # (Auto) (1.8-7.7) 10^3/u L Lymph # (Auto) (0.8-4.8) 10^3/u L [place] # (Auto) (0.2-0.9) 10^3/u L Eos # (Auto) (0.0-0.8) 10^3/u L Baso # (Auto) (0.0-0.1) 10^3/u L Nucleated RBC % (a uto) % Nucleated RBCs # /100WBC Sodium (136-145) mmol/L Potassium (3.5-5.1) mmol/L Chloride (98-107) mmol/L Carbon Dioxide (22-29) mmol/L Anion Gap (5-19) BUN (6-20) mg/dL Creatinine (0.5-0.9) mg/dL GFR Calculation (90-130) mL/min Glucose (65-115) mg/dL Calculated Osmolal ity (285-295) mOsm/k g Lactate 0.6 (0.5-2.2) mmol/L Calcium (8.5-10.5) mg/dL Total Bilirubin (0.15-1.2) mg/dL AST (0-32) U/L ALT (0-33) U/L Alkaline Phosphata se (35-105) IU/L Creatine Kinase (26-192) U/L Total Protein (6.6-8.7) g/dL Albumin (3.5-5.2) g/dL Globulin (1.3-4.6) g/dL Urine Color (Yellow) Urine Appearance (CLEAR) Urine pH (5-7) Ur Specific Gravit y (1.005-1.030) Urine Protein (Negative) Urine Glucose (UA) (Normal) Urine Ketones (Negative) Urine Blood (Negative) Urine Nitrate (Negative) Urine Bilirubin (Negative) Urine Urobilinogen (Negative) mg/dL Ur Leukocyte Stella ase (Negative) Urine RBC (0-2) /hpf Urine WBC (0-5) /hpf Ur Squamous Epith Cells (0-5) /hpf Amorphous Sediment /hpf Urine Bacteria (NONE) /hpf Hyaline Casts /lpf Urine Mucus /hpf COVID Results: SARS-CoV-2 Antigen (Rapid) Positive (Negative) H 01/19/21 18:35 01/19/21 Nasal/Oral Coronavirus 2019 PCR Not detected 10/03/20 11:00 10/03/20 Discharge Plan Discharge Patient Disposition: Home Clinical Impression: COVID-19, Acute dehydration Condition: Stable Prescriptions: New cephalexin 500 mg capsule 500 mg PO BID 7 Days Qty: 14 RF: 0 ondansetron 4 mg tablet,disintegrating 4 mg PO Q8H 4 Days Qty: 12 RF: 0 Medrol (Kota) 4 mg tablets,dose pack See Rx Instructions .ROUTE .COMPLEX Qty: 21 RF: 0 No Action Robitussin 100 mg/5 mL Liquid 200 mg PO Q4H PRN (Reason: COLD/FLU SYMPTOMS) RF: 0 ondansetron 4 mg tablet,disintegrating 4 mg PO DAILY RF: 0 Discharge Orders: Discharge ED (Routine); Ordered 01/22/21 Ordered By: Ramakrishna Gold Referrals: Angie Gutiérrez MD [Primary Care Provider] - Discharge Diet: Advance as tolerated Discharge Activity: Resume usual activity Patient Instructions: Dehydration (ED), Upper Respiratory Infection (ED), Opioid Safety Activity Restrictions/Additional Instructions: You are suffering from COVID-19. We have given you IV fluids and you have improved significantly. Please also take the Keflex and prednisone to help with your symptoms. I have discussed with Dr. Cole who agrees with the plan of care. Follow-up with your OB in a couple days and return to the ER with worsening symptoms. Quarantine at home and use a pulse oximeter to check your oxygen level at home. If it is reading 90% or below please return to the ER. If you have any worrisome or worsening symptoms also please return to the ER at any time. 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
[2021-01-21] MEDS: cephALEXin 500 mg Capsule PO (22:40)
[2021-01-21] MEDS: predniSONE 20 mg Tablet 40 MG PO (22:41)
[2021-01-21 22:51] VITALS: BP 115/92; PULSE 103; RESP 20; O2SAT 99
[2021-01-21 23:04] VITALS: BP 97/51
--- NOTE | 2021-01-22 00:47 | PC.NURSE ---
heart tones obtained by doppler. Rate 145. notified.
[2021-01-22 01:12] VITALS: BP 98/65; PULSE 98; RESP 22; O2SAT 100
== END 2021-01-22 01:14 | disposition home or self-care (01) ==
PROVIDERS: Emergency Provider Family Medicine; PCP Obstetrics & Gynecology
DX: O98.513 Other viral diseases complicating pregnancy, third trimester (principal); U07.1 COVID-19; O26.893 Other specified pregnancy related conditions, third trimester; E86.0 Dehydration; Z3A.29 29 weeks gestation of pregnancy
CPT/HCPCS: 71045; 80053; 81001; 82550; 83605; 85025; 96361; 96374; 99284; J2405; J7030; J7512

== ENCOUNTER → 2021-01-28 08:55 | Outpatient (BNVA) | payer MEDICAID, SELFPAY | PROVIDERS: PCP Obstetrics & Gynecology; Visit Provider Obstetrics & Gynecology | DX: Z34.82 Encounter for supervision of other normal pregnancy, second trimester (principal) | CPT/HCPCS: 82950; 84315 ==

== ENCOUNTER → 2021-02-11 08:26 | Outpatient (BNVA) | payer MEDICAID, SELFPAY | PROVIDERS: PCP Obstetrics & Gynecology; Visit Provider Obstetrics & Gynecology | DX: Z34.82 Encounter for supervision of other normal pregnancy, second trimester (principal) | CPT/HCPCS: 80053; 82951; 82952; 84315 ==

== ENCOUNTER → 2021-02-25 08:14 | Outpatient (BNVA) | payer MEDICAID, SELFPAY | PROVIDERS: PCP Obstetrics & Gynecology; Visit Provider Nurse Practitioner Women's Health | DX: O98.519 Other viral diseases complicating pregnancy, unspecified trimester (principal); R74.8 Abnormal levels of other serum enzymes; U07.1 COVID-19; Z30.2 Encounter for sterilization; O35.0XX0 Maternal care for (suspected) central nervous system malformation in fetus, not applicable or unspecified; O99.210 Obesity complicating pregnancy, unspecified trimester; O34.219 Maternal care for unspecified type scar from previous cesarean delivery | CPT/HCPCS: 80076; 84315 ==

== ENCOUNTER → 2021-03-14 09:08 | Outpatient (BNVA) | payer MEDICAID, SELFPAY | PROVIDERS: PCP Obstetrics & Gynecology; Visit Provider Obstetrics & Gynecology | DX: O41.00X0 Oligohydramnios, unspecified trimester, not applicable or unspecified (principal) | CPT/HCPCS: 84315; 87081; 87086 ==

== ENCOUNTER 2021-03-20 05:09 | Inpatient (IN) | payer MEDICAID, SELFPAY ==
[2021-03-20] VITALS (27 sets, daily range): BP systolic 104–149; BP diastolic 62–105; PULSE 51–94; RESP 12–16; TEMP 36.3–36.8; O2SAT 97–100; BMI 36.8
[2021-03-20] MEDS: lactated ringers 1,000 ML 999 ML IV (05:34)
[2021-03-20 05:48] LABS: Basophils # 0.1 10^3/uL (0.0-0.1); Basophils % 0.7 %; Eosinophils # 0.1 10^3/uL (0.0-0.8); Eosinophils % 1.2 %; Hematocrit 30.7 % (37.0-47.0); Lymphocytes # 2.6 10^3/uL (0.8-4.8); Lymphocytes % 36.8 %; Mean Corpuscular HGB Conc 32.6 g/dL (30.0-36.0); Mean Corpuscular Hemoglobin 27.9 pg (28.0-34.0); Mean Corpuscular Volume 85.8 fl (81-99); Mean Platelet Volume 11.1 fL (7.4-10.4); Monocytes # 0.5 10^3/uL (0.2-0.9); Monocytes % 7.5 %; Neutrophils % 53.4 %; Nucleated Red Blood Cells % 0 %; Platelet Count 260 10^3/cmm (130-400); Red Blood Count 3.58 10^6/uL (4.1-5.3); Red Cell Distribution Width 13.2 % (12.1-15.1); White Blood Count 6.9 10^3/uL (4.0-10.0)
[2021-03-20] MEDS: citric acid-sodium citrate 30 mL UDC PO (06:19)
[2021-03-20] MEDS: metoclopramide 5 mg/mL SDV 2 mL 10 MG IVP (06:19)
[2021-03-20] MEDS: famotidine 20 mg/2 mL INJ IVP (06:19)
--- NOTE | 2021-03-20 06:51 | ANES.PREANE2 ---
Pre-Anesthetic Assessment Pre-Anesthetic Assessment: Height/Weight: Height 1.6 m Weight 94.347 kg Pulse Resp BP Pulse Ox 73 16 136/78 100 03/20/21 05:37 03/20/21 05:16 03/20/21 05:13 03/20/21 05:37 Preop Diagnosis: Symptomatic cholelithiasis Proposed Procedure: Operation Date: 03/20/21 07:00 Proposed Procedures p Section Repeat 95235 O34.219(Not Applicable) - Angie Gutiérrez MD Familial anesthetic complications: none Was Beta Joe taken within 24 hours: N/A Was Clonidine taken within 24 hours: N/A Last intake: Intake Last Liquid Date 03/19/21 Last Liquid Time 20:30 Last Solid Date 03/19/21 Last Solid Time 19:00 Last Intake: 20:30 Social: Social History: No alcohol and No tobacco Exam: Pre-Anes Outpt Exam: alert, oriented x 3, clear to auscultation bilaterally and regular rate & rhythm Airway: Submandibular: WNL Cervical ROM: WNL MP: 2 Dentition: Full Pulmonary: Pulmonary: None reported CV/HEM: CV/HEM: None reported : : None reported Hepatic: Hepatic: None reported GI: GI: None reported Metabolic: Metabolic: None reported Musc/skel: Musc/skel: None reported Neuropsych: Neuropsych: None reported Anesthetic Plan: ASA status: 2 Anesthesia: Regional (specify below) (SAB) Risk of > 500 ml blood loss (7ml/kg in children): Yes, adequate IV access and fluids planned PFSH Anesthesia PFSH: Medical History Family history of colon cancer No pertinent past medical history Denies diabetes, asthma, hypertension, seizures, DVT/PE. PCP: None Surgical History History of cholecystectomy 10/08/2020--laparoscopic procedure at [address] Gonzalez at [facility] for gallstones Status post delivery x 2 ---01/25/2014--primary low transverse delivery with double layer closure of uterus with no extension performed at [facility] in [facility]. 11/03/2018--repeat low transverse delivery by Dr. Treadwell at [facility], minimal adhesions of bladder to uterus. Status post tonsillectomy and adenoidectomy At the age of 4 Family History Brother Colon cancer Arnel Jarrell her brother was diagnosed with colon cancer at the age of 21 and at the age of 23. She has never had a colonoscopy herself. Family/Other Breast cancer maternal aunt, diagnosed in er 50s Denies family history of Ovarian cancer Diabetes Heart disease Hyperlipidemia Hypertension Uterine cancer Thyroid condition Stroke Social History Smoking and tobacco status: never smoked Alcohol intake: unknown Female Reproductive History: Date of last menstrual period: 07/01/20 : 3 Data Anesthesia CBC & Chem 7: 03/20/21 05:27 Other Labs: Laboratory Results - last 48 hr 03/20/21 05:27 WBC 6.9 RBC 3.58 L Hgb 10.0 L Hct 30.7 L MCV 85.8 MCH 27.9 L MCHC 32.6 RDW 13.2 Plt Count 260 MPV 11.1 H Neut % (Auto) 53.4 Lymph % (Auto) 36.8 [place] % (Auto) 7.5 Eos % (Auto) 1.2 Baso % (Auto) 0.7 Neut # (Auto) 3.70 Lymph # (Auto) 2.6 [place] # (Auto) 0.5 Eos # (Auto) 0.1 Baso # (Auto) 0.1 Nucleated RBC % (auto) 0 Nucleated RBCs # 0.0 Cardiac Studies: No Data to Display
--- NOTE | 2021-03-20 06:54 | P.HPUD_ITS ---
Surgery/Procedure H&P Update DATE OF PROCEDURE: March 20, 2021 DATE H&P PERFORMED: 03/18/21 H&P UPDATE INFORMATION: I have reviewed H&P completed within last 30 days, I have examined patient prior to procedure, No changes to prior documentation and H&P is in [facility] E[place] on date indicated PREOP DIAGNOSIS: IUP PLANNED PROCEDURE: Operation Date: 03/20/21 07:00 Proposed Procedures p Section Repeat 87178 O34.219(Not Applicable) - Angie Gutiérrez MD
--- NOTE | 2021-03-20 09:11 | PM.OP ---
Operative Report Date of procedure: March 20, 2021 OPERATIVE REPORT Date of surgery: March 20, 2021 Date of dictation: March 20, 2021 Preoperative diagnosis: 25-year-old 3 P2002 at 37 weeks and 2 days, previous delivery x2, oligohydramnios with an YUSUF of 4, Covid in December 2020; [id number]; Postoperative diagnosis/findings: Same, baby girl weighing 6 pounds 5 ounces, 2850 g, 19 inches long with Apgars 8/9, normal tubes and ovaries bilaterally, thinned out lower uterine segment with dense adhesions of bladder onto the uterus. Procedure done: Repeat low transverse delivery via Pfannenstiel incision. Specimens removed/disposition of specimens: Placenta and cord which were discarded Surgeon: Dr. Angie Treadwell Conditioner Tumbler Operator: Kym Gongora Anesthesia: Spinal anesthesia Estimated blood loss: 800 ml Intravenous fluids: 1000 mL of LR Urine output: 250 mL of clear urine at the end of procedure Medications: As per anesthesia records Complications: None, both baby and mother were left recover in a stable condition PROCEDURE: After consent was obtained, patient was taken to the operating room where spinal anesthesia was placed without difficulty. She was placed supine on the table with a left lateral wedge. Boggs catheter and SCDs were placed. The abdomen was shaved and then prepped with duo prep. She was draped in a sterile fashion. After checking adequacy of anesthesia, a Pfannenstiel incision was made 2 cm above the pubic symphysis over her old incision. The incision was carried down to the fascia using the Bovie. The fascia was nicked in the midline and the fascial incision was extended laterally using curved Mayos. The inferior aspect of the fascia was grasped with giuliano clamps and dissected off from the underlying rectus muscle. This was repeated again superiorly without any difficulty. The rectus muscle was sharply and A carolee was made in the peritoneum and the peritoneal incision was carried inferiorly taking care to proceed in layers so as to avoid the bladder. The peritoneal incision was extended superiorly as well. No adhesions were noted from the uterus to the anterior abdominal wall. The uterus was noted to be rotated to the left. The bladder peritoneum was grasped with smooth forceps a bladder flap was created. There were dense adhesions of the bladder onto the uterus which were taken down sharply. The bladder blade was replaced thus protecting the bladder. A LOW TRANSVERSE UTERINE INCISION was made with a scalpel till the amniotic membrane was reached. The uterine incision was then extended laterally using bandage scissors. Amniotomy was done with Allis clamps and clear amniotic fluid was drained. The head of the baby was brought up to the level of the incision and delivered with fundal pressure. The remainder of body followed without any difficulty. The nose and mouth were suctioned, the umbilical cord was clamped and cut and the baby was handed off to the waiting farm service adviser, Dr. Parr. The placenta was delivered spontaneously with fundal massage. It was noted to be intact and was discarded. The interior of the uterus was cleaned of all clot and debris and was noted to be braeden well. The uterus was exteriorized. The uterine incision was closed with 0 Vicryl in a running interlocking manner. Good hemostasis and reapproximation was obtained. [id number] sutures were placed to obtain hemostasis over the incision. The abdomen was irrigated and the gutters were cleaned of clot and debris. Normal tubes and ovaries were noted bilaterally. The uterus was placed back into the abdomen and uterine incision was noted to be hemostatic. The peritoneum was closed with a 2-0 plain in a continuous stitch. The rectus muscle was reapproximated with 2-0 plain suture in a mattress stitch. Good hemostasis was noted in the rectus muscle layer. The fascia was inspected for any defects and none were found and the fascia was closed with 0 loop PDS in continuous stitch. The subcutaneous plane was then irrigated and hemostasis was obtained using the Bovie. The subcutaneous plane was then reapproximated using 2-0 plain suture in a continuous manner. The skin was then closed with 4-0 Monocryl in a subcuticular fashion. Good reapproximation and hemostasis was noted. Steri-Strips were applied. The incision was dressed with Telfa ,ABD and paper tape. The fundus was noted to be firm at the end of the procedure and excess blood was expressed from the vagina. The patient was left to recover in a stable condition. This documentation was created by [employer] minister assistant software (known for inherent minister assistant error). Every effort was made to assure accuracy of minister assistant. Any obvious errors or omissions should be clarified with the author of the document. Pre-op Diagnosis: IUP History History History 3 Term 3 Miscarriages/Ectopic 0 0 Living Children 3 Other History: 3 Para 3003 CD x 3 1--> 01/25/2014, female,(Isaías) 6 lbs 10 ozs, 37 wks, spinal, delivery due to Breech presentation, delivered at [facility] in [place], [place]. No complications . She saw Dr. Escobar during the and was sent to [facility] for possible dolichocephaly however ended up having a at 37 weeks for oligohydramnios with an YUSUF of 4 cm. After evaluation of baby was within normal limits. 2--> 11/03/2018, repeat low transverse delivery by Dr. Treadwell at [facility]. Baby boy, Albert weighing 6 lbs. 13 oz. with Apgars 8/9. Minimal adhesions of bladder onto the uterus. No immediate postoperative complications 3--> 03/20/2021, female, (Karolina Rivero) weighing 6 pounds 5 ounces, scheduled repeat low transverse delivery at 37 weeks and 2 days due to oligohydramnios by Dr. Treadwell at [facility]. 10 sedations of blood around the uterus. Thinned out lower uterine segment. 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 PCP: None Surgical History (Updated 03/20/21 @ 10:15 by Angie Gutiérrez MD) History of cholecystectomy 10/08/2020--laparoscopic procedure at [address] Gonzalez at [facility] for gallstones Status post delivery x 3 ---01/25/2014--primary low transverse delivery with double layer closure of uterus with no extension performed at [facility] in [facility]. 11/03/2018--repeat low transverse delivery by Dr. Treadwell at [facility], minimal adhesions of bladder to uterus. 03/20/2021---repeat low transverse delivery scheduled at [address] Treadwell at [facility] Status post tonsillectomy and adenoidectomy At the age of 4 Family History Brother Colon cancer Arnel Jarrell her brother was diagnosed with colon cancer at the age of 21 and at the age of 23. She has never had a colonoscopy herself. Family/Other Breast cancer maternal aunt, diagnosed in er 50s Denies family history of Ovarian cancer Diabetes Heart disease Hyperlipidemia Hypertension Uterine cancer Thyroid condition Stroke Social History Smoking and tobacco status: never smoked Alcohol intake: unknown Supplemental [facility] Information - Tobacco Use: Denies, never smoked Drug Use: Denies Alcohol Use: Denies Work/Study Status: [id number] mother. Last well woman visit: Other Female Reproductive History Menstrual History Comment: Menarche at age 11 with a cycle length of 28-30 days and a bleeding duration of 4-5 days. Sexual History Sexual History Comment: Coitarche at age 16, less than 5 lifetime partners, has been with her current partner, her Mitch Coronel since 2017. He works at a [employer] STD History Comment: Denies history of sexually transmitted diseases Contraception Contraception History Comment: Has only used control pills in the past for contraception. Stop using control pills in 2017-no particular reason. used Control pills for about 6 months after her last delivery in October 2018. Was using condoms and withdrawal for contraception when she got . -Desires LARC
[2021-03-20] MEDS: ondansetron 2 mg/ML SDV 2 mL 4 MG IVP (10:18)
[2021-03-20] MEDS: ibuprofen 800 mg tablet PO ×3 (10:20→20:53)
[2021-03-20] MEDS: dextrose 5%-lactated ringers 1,000 ML 125 ML IV (16:43)
[2021-03-20] MEDS: docusate sodium 100 mg Capsule PO (17:59)
[2021-03-20 19:58] LABS: Hemoglobin 10.1 g/dL (11.5-15.3); Mean Corpuscular HGB Conc 32.6 g/dL (30.0-36.0); Mean Corpuscular Hemoglobin 28.5 pg (28.0-34.0); Mean Corpuscular Volume 87.6 fl (81-99); Mean Platelet Volume 10.9 fL (7.4-10.4); Platelet Count 269 10^3/cmm (130-400); Red Blood Count 3.54 10^6/uL (4.1-5.3); Red Cell Distribution Width 13.3 % (12.1-15.1); White Blood Count 8.9 10^3/uL (4.0-10.0)
[2021-03-21 02:30] VITALS: BP 123/82; PULSE 59; RESP 14; TEMP 36.8; O2SAT 99
[2021-03-21] MEDS: dextrose 5%-lactated ringers 1,000 ML 125 ML IV (05:57)
[2021-03-21] MEDS: HYDROcodone-acetaminophen 5-325 mg Tablet PO ×2 (07:01→13:22)
[2021-03-21] MEDS: docusate sodium 100 mg Capsule PO (08:30)
[2021-03-21] MEDS: ibuprofen 800 mg tablet PO ×3 (08:30→21:02)
[2021-03-21] MEDS: prenatal vitamin Capsule 1 CAP PO (08:30)
[2021-03-21 10:00] VITALS: BP 118/77; PULSE 66; RESP 12; TEMP 36.6; TEMP 36.7; O2SAT 100
--- NOTE | 2021-03-21 11:40 | PM.PN ---
Subjective Subjective: Interval history: SUBJECTIVE: Danica states that she is doing pretty good today. She does not have much pain and denies any problems with her incision. She has not yet passed gas but is burping a little. She is tolerating full liquids without any nausea or vomiting. She has been ambulating well and has voided without difficulty after removal of catheter. She denies fever, chills, shortness of breath and chest pain. OBJECTIVE/PHYSICAL EXAM: Gen.: No acute distress Heart: S1-S2 heard, regular rate and rhythm Lungs: Clear to auscultation bilaterally Abdomen: Soft, fundus firm below umbilicus, tenderness around incision. Incision: Clean dry and intact with Steri-Strips. Legs: No calf tenderness, trace bilateral pitting pedal edema. ASSESSMENT AND PLAN: 25-year-old 3 para 3-0-0-3 status post repeat delivery, postoperative day #1 -Doing well-continue p.o. pain medication -Encourage ambulation, SCDs while in bed, incentive spirometry use -Incision care reviewed with patient, pain control reviewed with patient -Discharge instructions reviewed with patient since local will be discharging patient tomorrow -Anticipate discharge home in the next 1 to 2 days depending on how she is doing. -Continue full liquid diet until patient passes flatus and then advance diet to regular diet. -Vital signs stable, hemoglobin stable Vitals/I&O/Wt Last Vital Signs Temp 98.2 F 03/21/21 02:30 Pulse 59 L 03/21/21 02:30 Resp 14 03/21/21 02:30 BP 123/82 03/21/21 02:30 Pulse Ox 99 03/21/21 02:30 03/20/21 03/21/21 03/21/21 22:59 06:59 14:59 Intake Total 1000 / 2000 1000 / 3000 Output Total 2050 / 2700 650 / 3350 300 / 300 Balance -1050 / -700 350 / -350 -300 / -300 Weight last 48 hrs Weight 208 lb Physical Exam Urinary Catheter Management^: Boggs: Cath Placed During This Visit: yes, but has since been removed by the nurse Reason for Continuing Indwelling Catheter: Perioperative Use in Selected Surgeries Urinary Catheter Date of Insertion: 03/20/21 Urinary Catheter Time of Insertion: 07:20 Date Urinary Catheter Removed: 03/20/21 Time Urinary Catheter Discontinued: 20:05 Data : 03/20/21 19:49 Attestations Medical Necessity Statement*: Patient needs to stay for 1 or 2 more midnights to recover from surgery Coding Level of Care Code Acute Licensed Final Expense Agents for Bobby Quintero
[2021-03-21] MEDS: simethicone 80 mg Chew PO (13:27)
--- NOTE | 2021-03-21 13:41 | PC.NURSE ---
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 Patient was encouraged to get out of bed, put hands above head, and walk around room. Patient was then ambulated three laps around the unit and then back to room to sit up in chair. Pain was relieved by ambulating. Patient also give prescribed medication for pain and Simethicone for gas, see MAR.
[2021-03-21 16:15] VITALS: BP 139/90; PULSE 61; RESP 12; TEMP 36.7; O2SAT 99
[2021-03-21 21:00] VITALS: BP 117/75; PULSE 70; RESP 18; TEMP 36.4; O2SAT 99
[2021-03-22] MEDS: HYDROcodone-acetaminophen 5-325 mg Tablet PO (02:02)
[2021-03-22 03:01] VITALS: BP 126/92; PULSE 64; RESP 18; TEMP 36.6; O2SAT 99
[2021-03-22] MEDS: ibuprofen 800 mg tablet PO (08:51)
[2021-03-22] MEDS: prenatal vitamin Capsule 1 CAP PO (08:51)
[2021-03-22] MEDS: docusate sodium 100 mg Capsule PO (08:51)
--- NOTE | 2021-03-22 10:42 | P.PN_ITS ---
PRODUCT PROMOTER RETAIL PET Subjective Subjective: Interval history: Patient is POD #2 s/p Repeat CS at 37 weeks due to oligohydramnios (YUSUF 4). She is doing very well. She has tolerated all of the routine advances. Pain is well controlled with current medications. Bottle feeding is going well. She is eager to go home today. Vitals/I&O/Wt Last Vital Signs Temp 97.8 F 03/22/21 03:01 Pulse 64 03/22/21 03:01 Resp 18 03/22/21 03:01 BP 126/92 03/22/21 03:01 Pulse Ox 99 03/22/21 03:01 03/21/21 03/22/21 03/22/21 22:59 06:59 14:59 Output Total 1450 / 1750 Balance -1450 / -1295.833 Physical Exam Const: COMMON NORMALS: no acute distress and patient oriented x3 GENERAL APPEARANCE: cooperative and well developed Resp: COMMON NORMALS: normal respiratory effort and No retractions GI: INSPECTION: Yes normal to inspection (Incision looks clean, it is healing well, no evidence of infection) and Yes incision Inspection of incision: healing well Neuro: COMMON NORMALS: patient oriented x3 Urinary Catheter Management^: Boggs: Cath Placed During This Visit: yes, but has since been removed by the nurse Reason for Continuing Indwelling Catheter: Perioperative Use in Selected Surgeries Urinary Catheter Date of Insertion: 03/20/21 Urinary Catheter Time of Insertion: 07:20 Date Urinary Catheter Removed: 03/20/21 Time Urinary Catheter Discontinued: 20:05 Data : 03/20/21 19:49 A&P Assessment and plan (1) Supervision of normal : Status: Acute Qualifiers: Normal : other normal Trimester: second trimester Qualified Code(s): Z34.82 - Encounter for supervision of other normal , second trimester (2) Previous delivery affecting , antepartum: Status: Acute (3) Obesity affecting , antepartum: Status: Acute (4) COVID-19 affecting , antepartum: Status: Acute (5) Oligohydramnios: Status: Acute (6) delivery delivered: Plan to discharge home today. Patient has tolerated all the routine advances. All of the appropriate prescriptions will be provided. Status: Acute Attestations Medical Necessity Statement*: Patient was admitted to undergo a repeat section Coding Level of Care Code Acute Agricultural Service Technician for Chg Fwd Diagnoses Supervision of normal Z34.82 Normal : other normal Trimester: second trimester Previous delivery affecting , antepartum O34.219 Obesity affecting , antepartum O99.210 COVID-19 affecting , antepartum O98.519; U07.1 Oligohydramnios O41.00X0 delivery delivered O82
--- NOTE | 2021-03-22 10:52 | PM.OBGYDC ---
Discharge Providers GROUND SUPPORT EQUIPMENT ASSEMBLER Date of Admission: 03/20/21 05:09 Date of Discharge: 03/22/21 Attending Provider at Admission: Angie Gutiérrez MD Attending Provider at Discharge: Angie Gutiérrez MD Primary Care Provider: Angie Gutiérrez MD Diagnoses at Discharge Discharge Diagnosis (1) Supervision of normal : Status: Acute Qualifiers: Normal : other normal Trimester: second trimester Qualified Code(s): Z34.82 - Encounter for supervision of other normal , second trimester (2) Previous delivery affecting , antepartum: Status: Acute (3) Obesity affecting , antepartum: Status: Acute (4) COVID-19 affecting , antepartum: Status: Acute (5) Oligohydramnios: Status: Acute (6) delivery delivered: Status: Acute Reason for Visit Reason for Visit: repeat c section Hospital Course Hospital Course Patient is a 25 year old with history of previous sections x 2 was admitted for a repeat section at 37 weeks due to oligohydramnios (YUSUF 4) Patient's postoperative course was unremarkable and on POD #2 she was stable to go home. She is being discharged home today. Information Peripartum Data: Delivery Method: Physical Exam Const: COMMON NORMALS: no acute distress GENERAL APPEARANCE: cooperative and well developed Resp: COMMON NORMALS: normal respiratory effort and No retractions GI: INSPECTION: Yes normal to inspection and Yes incision Inspection of incision: healing well and other (Looks clean, dry and intact, no evidence of infection) Urinary Catheter Management^: Boggs: Cath Placed During This Visit: yes, but has since been removed by the nurse Reason for Continuing Indwelling Catheter: Perioperative Use in Selected Surgeries Urinary Catheter Date of Insertion: 03/20/21 Urinary Catheter Time of Insertion: 07:20 Date Urinary Catheter Removed: 03/20/21 Time Urinary Catheter Discontinued: 20:05 Discharge Data Vitals: Last Vital Signs Temp 97.8 F 03/22/21 03:01 Pulse 64 03/22/21 03:01 Resp 18 03/22/21 03:01 BP 126/92 03/22/21 03:01 Pulse Ox 99 03/22/21 03:01 Discharge Plan Discharge Patient Disposition: Home Condition: Stable Prescriptions: New ibuprofen 800 mg Tablet 800 mg PO TID Qty: 40 RF: 0 hydrocodone-acetaminophen 5-325 mg Tablet 1 - 2 tab PO Q4H PRN (Reason: Moderate To Severe Pain) Qty: 25 RF: 0 docusate sodium 100 mg Capsule 100 mg PO BID Qty: 40 RF: 0 ferrous sulfate 325 mg (65 mg iron) Tablet,Delayed Release (Dr/Ec) 325 mg PO BIDWM Qty: 60 RF: 0 -U 106.5-1 mg Capsule 1 cap PO BREAKFAST Qty: 30 RF: 2 Discharge Orders: Discharge Order (Routine); Ordered 03/22/21 Ordered By: Ghada Romano Referrals: Angie Gutiérrez MD [Primary Care Provider] - 03/31/21 2:30 pm (Your 2 week incision check is scheduled for 03/31/21 @3:30. Your 6 week post- appointment is scheduled for 04/28/21 @2:30. ) Discharge Diet: Advance as tolerated and Usual diet Discharge Activity: Limit activity as instructed Patient Instructions: Vitamins (By mouth), Depression (GEN), Pre-eclampsia and Eclampsia (DC), Bleeding (DC), OB [facility], OB Discharge Report, OB Food/Drug Interaction Guide, Opioid Safety, OB Home Care Discharge Attestations GROUND SUPPORT EQUIPMENT ASSEMBLER Time Spent in Discharge Care*: less than 30 min Specific Discharge Activities: Specific discharge activities: educating patient Status at Discharge: Cognitive status at discharge: cognitively intact, Behavioral status at discharge: cooperative, Functional status at discharge: independent ambulation Coding Level of Care Code Acute Ict Sales Representative for g Fwd Diagnoses Supervision of normal Z34.82 Normal : other normal Trimester: second trimester Previous delivery affecting , antepartum O34.219 Obesity affecting , antepartum O99.210 COVID-19 affecting , antepartum O98.519; U07.1 Oligohydramnios O41.00X0 delivery delivered O82
[2021-03-22 11:21] VITALS: BP 138/94; PULSE 80; RESP 17; TEMP 36.4; O2SAT 100
== END 2021-03-22 11:54 | disposition home or self-care (01) | DRG 786 ==
PROVIDERS: Admitting Provider Obstetrics & Gynecology; PCP Obstetrics & Gynecology; Visit Provider Obstetrics & Gynecology
PROC: (CPT 59514; principal; 2021-03-20 07:00)
DX: O34.211 Maternal care for low transverse scar from previous cesarean delivery (principal); U07.1 COVID-19; O41.03X0 Oligohydramnios, third trimester, not applicable or unspecified; O98.513 Other viral diseases complicating pregnancy, third trimester; O99.213 Obesity complicating pregnancy, third trimester; E66.9 Obesity, unspecified; Z3A.37 37 weeks gestation of pregnancy; Z37.0 Single live birth; Z80.3 Family history of malignant neoplasm of breast; Z80.0 Family history of malignant neoplasm of digestive organs; Z90.49 Acquired absence of other specified parts of digestive tract; Z88.2 Allergy status to sulfonamides
CPT/HCPCS: 36415; 51702; 59025; 59409; 85025; 85027; 86850; 86900; 96374; 98960; J2274; J2405; J2765; J3490; J7030

== ENCOUNTER → 2021-04-28 15:06 | Outpatient (BNVA) | payer MEDICAID, SELFPAY | PROVIDERS: PCP Obstetrics & Gynecology; Visit Provider Obstetrics & Gynecology | DX: Z12.4 Encounter for screening for malignant neoplasm of cervix (principal) | CPT/HCPCS: 88175 ==

== ENCOUNTER 2022-01-29 22:55 | Emergency (ER) | payer MEDICAID, SELFPAY ==
[2022-01-29 23:12] VITALS: BP 116/77; PULSE 74; RESP 16; TEMP 36.3; O2SAT 99
--- NOTE | 2022-01-30 01:30 | CTR_ITS ---
PROCEDURE INFORMATION: Exam: CT Abdomen And Pelvis Without Contrast Exam date and time: 01/30/2022 2:33 AM Age: 26 years old Clinical indication: Abdominal pain; Prior surgery; Surgery type: Gb. Csection. Patient HX: C/O left flank pain with nausea. TECHNIQUE: Imaging protocol: Computed tomography of the abdomen and pelvis without contrast. Radiation optimization: All CT scans at this facility use at least one of these dose optimization techniques: automated exposure control; mA and/or kV adjustment per patient size (includes targeted exams where dose is matched to clinical indication); or iterative reconstruction. COMPARISON: US Abdomen* [id number] 12/10/2018 8:33 PM RADIATION DOSE METRICS: Total DLP (mGy-cm): 954.78 FINDINGS: Liver: Normal. No mass. Gallbladder and bile ducts: Status post cholecystectomy. Pancreas: Normal. No ductal dilation. Spleen: Normal. No splenomegaly. Adrenal glands: Normal. No mass. Kidneys and ureters: Normal. No hydronephrosis. Stomach and bowel: Diverticula present the sigmoid colon. There are no inflammatory changes seen to suggest diverticulitis. Appendix: No evidence of appendicitis. Intraperitoneal space: Unremarkable. No free air. No significant fluid collection. Vasculature: Unremarkable. No abdominal aortic aneurysm. Lymph nodes: Unremarkable. No enlarged lymph nodes. Urinary bladder: Unremarkable as visualized. Reproductive: Unremarkable as visualized. Bones/joints: Unremarkable. No acute fracture. Soft tissues: Unremarkable. CT/CT kidney stone [id number] IMPRESSION: 1. There are no acute abdominal findings. 2. Mild diverticulosis of the sigmoid colon 3. There is no evidence for ureteral obstruction
--- NOTE | 2022-01-30 01:31 | W.ED.ABDPA2 ---
Documented by User: SAHRA Porras 01/30/22 13:36 HPI - Abdominal Pain General: Chief Complaint: Abdominal Pain Stated Complaint: abd pain Time Seen by Provider: 01/30/22 00:24 History of Present Illness: Patient is a 26-year-old female comes to the ED with left flank pain. Pain was acute onset at around 6 PM tonight. Pain started on left upper quadrant and radiated to left side of back. She says the pain was constant at that time and severe. She tried using a heating pad and resting in different positions and her pain did not improve. Patient took ibuprofen couple hours ago and that helped pain a lot. Here in the ED she says her pain is very mild to minimal. Denies any fever, chills, nausea/vomiting, dysuria, hematuria or bowel symptoms. Denies any history of past kidney stones. Past surgical history of cholecystectomy. Associated Symptoms: Denies chills, constipation, diarrhea, dysuria, fever(s), hematochezia, hematuria, nausea and vomiting Related Data: Date of Last Menstrual Period: 07/01/20 Review of Systems Const: Denies: fever(s), chills or fatigue Eyes: Denies: change in vision or eye discomfort ENMT: Denies: throat pain, odynophagia, nasal discharge or nasal congestion Card: Denies: chest pain, palpitations, edema, swelling of feet/ankles, dyspnea on exertion or orthopnea Resp: Denies: dyspnea, productive cough or non-productive cough GI: Denies: abdominal pain, nausea, vomiting, diarrhea, constipation or hematochezia : Reports: flank pain (Left flank); Denies: dysuria or hematuria Musc: Denies: neck pain, back pain or extremity swelling Skin/Breast: Denies: rash or new lesions Neuro: Denies: headache(s), numbness in extremities or weakness in extremities PFSH ED PFSH: Medical History Family history of colon cancer No pertinent past medical history Denies diabetes, asthma, hypertension, seizures, DVT/PE. PCP: None Surgical History History of cholecystectomy 10/08/2020--laparoscopic procedure at [address] [place] [facility] [place] Status post delivery x 3 ---01/25/2014--primary low transverse delivery with double layer closure of uterus with no extension performed at [facility] in [facility]. 11/03/2018--repeat low transverse delivery by Dr. Treadwell at [facility], minimal adhesions of bladder to uterus. 03/20/2021---repeat low transverse delivery scheduled at [address] Treadwell [place] [facility] Status post tonsillectomy and adenoidectomy At the age of 4 Family History Brother Colon cancer Arnel Jarrell her brother was diagnosed with colon cancer at the age of 21 and at the age of 23. She has never had a colonoscopy herself. Family/Other Breast cancer maternal aunt, diagnosed in er 50s Denies family history of Ovarian cancer Diabetes Heart disease Hyperlipidemia Hypertension Uterine cancer Thyroid condition Stroke Social History Smoking and tobacco status: never smoked Alcohol intake: unknown Female Reproductive History: Date of last menstrual period: 07/01/20 Physical Exam Const: COMMON NORMALS: patient oriented x3 and alert GENERAL APPEARANCE: cooperative HENMT: COMMON NORMALS: normocephalic HEAD & SCALP: normocephalic MOUTH: Normal oral and palatal mucosa present THROAT: posterior oropharynx normal and uvula midline Neck/C-Spine: COMMON NORMALS: supple GENERAL: Yes normal visual inspection Resp: COMMON NORMALS: normal respiratory effort, No retractions, No use of accessory muscles and clear to auscultation bilaterally AUSCULTATION: clear to auscultation bilaterally Cardio: COMMON NORMALS: regular rate, regular rhythm, S1 normal heart sound present, S2 normal heart sound present, No gallops present (Cardio), No clicks present (Cardio), No murmurs present (Cardio) and Peripheral pulses 2+ throughout RATE: regular rate RHYTHM: regular rhythm HEART SOUNDS: S1 normal heart sound present and S2 normal heart sound present PERIPHERAL PULSES: Peripheral pulses 2+ throughout GI: COMMON NORMALS: Normal to inspection, nondistended, normoactive bowel sounds present, Soft to palpation, non-tender and no masses PALPATION: Yes Soft to palpation : BLADDER/KIDNEY EXAM: Yes CVA tenderness on the left Back/Pelvis: GENERAL BACK: Yes CVA tenderness Extremity: COMMON NORMALS: normal to inspection Neuro: COMMON NORMALS: patient oriented x3 SENSORIUM/ORIENTATION: Yes alert GAIT: Yes Normal gait present Skin: GENERAL SKIN EXAM: dry skin Course Vital Signs: Vital signs: Vital Signs Temperature 97.3 F L 01/29/22 23:12 Pulse Rate 77 01/30/22 06:08 Respiratory Rate 18 01/30/22 06:08 Blood Pressure 128/78 01/30/22 06:08 Pulse Oximetry 98 01/30/22 06:08 Oxygen Delivery Me thod 01/30/22 06:08 MDM - Abdominal Pain Lab Data I reviewed the patient's lab results. : 01/30/22 01:40 01/30/22 01:40 Labs/Radiology: Radiology Impressions Abdomen/Pelvis CT 01/30/22 01:30 IMPRESSION: 1. There are no acute abdominal findings. 2. Mild diverticulosis of the sigmoid colon 3. There is no evidence for ureteral obstruction Laboratory Results WBC 8.4 10^3/uL (4.0-10.0) 01/30/22 01:40 RBC 4.42 10^6/uL (4.1-5.3) 01/30/22 01:40 Hgb 12.0 g/dL (11.5-15.3) 01/30/22 01:40 Hct 37.7 % (37.0-47.0) 01/30/22 01:40 MCV 85.3 fl (81-99) 01/30/22 01:40 MCH 27.1 pg (28.0-34.0) L 01/30/22 01:40 MCHC 31.8 g/dL (30.0-36.0) 01/30/22 01:40 RDW 13.5 % (12.1-15.1) 01/30/22 01:40 Plt Count 369 10^3/cmm (130-400) 01/30/22 01:40 MPV 9.2 fL (7.4-10.4) 01/30/22 01:40 Neut % (Auto) 47.2 % 01/30/22 01:40 Lymph % (Auto) 43.0 % 01/30/22 01:40 [place] % (Auto) 6.3 % 01/30/22 01:40 Eos % (Auto) 2.9 % 01/30/22 01:40 Baso % (Auto) 0.5 % 01/30/22 01:40 Neut # (Auto) 3.97 10^3/uL (1.8-7.7) 01/30/22 01:40 Lymph # (Auto) 3.6 10^3/uL (0.8-4.8) 01/30/22 01:40 [place] # (Auto) 0.5 10^3/uL (0.2-0.9) 01/30/22 01:40 Eos # (Auto) 0.2 10^3/uL (0.0-0.8) 01/30/22 01:40 Baso # (Auto) 0.0 10^3/uL (0.0-0.1) 01/30/22 01:40 Nucleated RBC % (auto) 0 % 01/30/22 01:40 Nucleated RBCs # 0.0 /100WBC 01/30/22 01:40 Sodium 138 mmol/L (136-145) 01/30/22 01:40 Potassium 4.3 mmol/L (3.5-5.1) 01/30/22 01:40 Chloride 102 mmol/L (98-107) 01/30/22 01:40 Carbon Dioxide 25 mmol/L (22-29) 01/30/22 01:40 Anion Gap 15.3 (5-19) 01/30/22 01:40 BUN 12 mg/dL (6-20) 01/30/22 01:40 Creatinine 0.6 mg/dL (0.5-0.9) 01/30/22 01:40 GFR Calculation 119.0 mL/min (90-130) 01/30/22 01:40 Glucose 92 mg/dL (65-115) 01/30/22 01:40 Calculated Osmolality 285 mOsm/kg (285-295) 01/30/22 01:40 Calcium 9.4 mg/dL (8.5-10.5) 01/30/22 01:40 Total Bilirubin 0.2 mg/dL (0.15-1.2) 01/30/22 01:40 AST 12 U/L (0-32) 01/30/22 01:40 ALT 10 U/L (0-33) 01/30/22 01:40 Alkaline Phosphatase 90 IU/L (35-105) 01/30/22 01:40 Total Protein 7.4 g/dL (6.6-8.7) 01/30/22 01:40 Albumin 4.7 g/dL (3.5-5.2) 01/30/22 01:40 Globulin 2.7 g/dL (1.3-4.6) 01/30/22 01:40 Lipase 37 U/L (13-60) 01/30/22 01:40 HCG, Qual Negative (Negative) 01/30/22 01:40 Urine Color Yellow (Yellow) 01/30/22 03:06 Urine Appearance Clear (CLEAR) 01/30/22 03:06 Urine pH 5 (5-7) 01/30/22 03:06 Ur Specific [place] 1.020 (1.005-1.030) 01/30/22 03:06 Urine Protein Neg (Negative) 01/30/22 03:06 Urine Glucose (UA) Norm (Normal) 01/30/22 03:06 Urine Ketones Negative (Negative) 01/30/22 03:06 Urine Blood Neg (Negative) 01/30/22 03:06 Urine Nitrate Negative (Negative) 01/30/22 03:06 Urine Bilirubin Neg (Negative) 01/30/22 03:06 Urine Urobilinogen Norm mg/dL (Negative) 01/30/22 03:06 Ur Leukocyte Esterase Negative (Negative) 01/30/22 03:06 Discharge Plan Discharge Patient Disposition: Home Clinical Impression: Acute left flank pain Condition: Stable Prescriptions: New diclofenac sodium 75 mg tablet,delayed release (DR/EC) 75 mg PO BID Qty: 30 0RF No Action fluoxetine [Prozac] 20 mg capsule 20 mg PO DAILY Qty: 90 1RF Discharge Orders: Discharge ED (Routine); Ordered 01/30/22 Ordered By: Sebastian Benitez Referrals: Angie Gutiérrez MD [Primary Care Provider] - Discharge Diet: Usual diet Discharge Activity: Resume usual activity Patient Instructions: Opioid Safety Coding Level of Care Code ED [employer] for Chg Fwd Exam Comprehensive Documented by User: Sebastian Benitez DO 01/30/22 18:14 HPI - Abdominal Pain General: Chief Complaint: Abdominal Pain Stated Complaint: abd pain Time Seen by Provider: 01/30/22 00:24 PFSH ED PFSH: Medical History Family history of colon cancer No pertinent past medical history Denies diabetes, asthma, hypertension, seizures, DVT/PE. PCP: None Surgical History History of cholecystectomy 10/08/2020--laparoscopic procedure at [address] [place] [facility] [place] Status post delivery x 3 ---01/25/2014--primary low transverse delivery with double layer closure of uterus with no extension performed at [facility] in [facility]. 11/03/2018--repeat low transverse delivery by Dr. Treadwell at [facility], minimal adhesions of bladder to uterus. 03/20/2021---repeat low transverse delivery scheduled at [address] Treadwell [place] [facility] Status post tonsillectomy and adenoidectomy At the age of 4 Family History Brother Colon cancer Arnel Jarrell her brother was diagnosed with colon cancer at the age of 21 and at the age of 23. She has never had a colonoscopy herself. Family/Other Breast cancer maternal aunt, diagnosed in er 50s Denies family history of Ovarian cancer Diabetes Heart disease Hyperlipidemia Hypertension Uterine cancer Thyroid condition Stroke Social History Smoking and tobacco status: never smoked Alcohol intake: unknown Course Vital Signs: Vital signs: Vital Signs Temperature 97.3 F L 01/29/22 23:12 Pulse Rate 77 01/30/22 06:08 Respiratory Rate 18 01/30/22 06:08 Blood Pressure 128/78 01/30/22 06:08 Pulse Oximetry 98 01/30/22 06:08 Oxygen Delivery Me thod 01/30/22 06:08 MDM - Abdominal Pain Medical Decision Making 26-year-old female signed out to or Sebastian Benitez at [address] abdomen pelvis. CT abdomen pelvis without significant abnormality to suggest kidney stones or other life-threatening pathology. Patient given strict return precautions and recommended routine outpatient follow-up. Lab Data : 01/30/22 01:40 01/30/22 01:40 Labs/Radiology: Radiology Impressions Abdomen/Pelvis CT 01/30/22 01:30
[2022-01-30 01:46] LABS: Basophils % 0.5 %; Eosinophils # 0.2 10^3/uL (0.0-0.8); Eosinophils % 2.9 %; Hematocrit 37.7 % (37.0-47.0); Lymphocytes # 3.6 10^3/uL (0.8-4.8); Mean Corpuscular HGB Conc 31.8 g/dL (30.0-36.0); Mean Corpuscular Hemoglobin 27.1 pg (28.0-34.0); Mean Corpuscular Volume 85.3 fl (81-99); Mean Platelet Volume 9.2 fL (7.4-10.4); Monocytes # 0.5 10^3/uL (0.2-0.9); Monocytes % 6.3 %; Neutrophils # 3.97 10^3/uL (1.8-7.7); Neutrophils % 47.2 %; Nucleated Red Blood Cells % 0 %; Platelet Count 369 10^3/cmm (130-400); Red Blood Count 4.42 10^6/uL (4.1-5.3); Red Cell Distribution Width 13.5 % (12.1-15.1); White Blood Count 8.4 10^3/uL (4.0-10.0)
[2022-01-30 02:13] LABS: Alanine Aminotransferase 10 U/L (0-33); Albumin Level 4.7 g/dL (3.5-5.2); Alkaline Phosphatase 90 IU/L (35-105); Aspartate Amino Transferase 12 U/L (0-32); Blood Urea Nitrogen 12 mg/dL (6-20); Calcium 9.4 mg/dL (8.5-10.5); Carbon Dioxide 25 mmol/L (22-29); Chloride 102 mmol/L (98-107); Globulin 2.7 g/dL (1.3-4.6); Glucose 92 mg/dL (65-115); Lipase 37 U/L (13-60); Osmolality Calculated 285 mOsm/kg (285-295); Sodium 138 mmol/L (136-145); Total Bilirubin 0.2 mg/dL (0.15-1.2); Total Protein 7.4 g/dL (6.6-8.7)
[2022-01-30 02:22] LABS: Anion Gap 15.3 (5-19); HCG, Serum Qual Negative (Negative); Potassium 4.3 mmol/L (3.5-5.1)
[2022-01-30 03:22] LABS: Add Urine Microscopic? NO; Charge for UA Resulting for Rev
[2022-01-30 03:30] LABS: Bilirubin Urine Neg (Negative); Blood Urine Neg (Negative); Glucose Urine UA Norm (Normal); Ketones Urine Negative (Negative); Leukocyte Esterase Urine Negative (Negative); Nitrate Urine Negative (Negative); Protein Urine Neg (Negative); Urine Appearance Clear (CLEAR); Urine Color Yellow (Yellow); Urobilinogen Urine Norm (Negative); pH Urine 5 (5-7)
[2022-01-30 04:27] VITALS: BP 131/84; PULSE 77; RESP 18; O2SAT 99
[2022-01-30 06:08] VITALS: BP 128/78; PULSE 77; RESP 18; O2SAT 98
== END 2022-01-30 06:18 | disposition home or self-care (01) ==
PROVIDERS: Emergency Provider Physician Assistant; PCP Obstetrics & Gynecology
DX: R10.9 Unspecified abdominal pain (principal)
CPT/HCPCS: 74176; 80053; 81003; 83690; 84703; 85025; 99284